=== PATIENT | male | born 1940 | race Caucasian/White ===

== ENCOUNTER 2022-11-12 08:07 | Day surgery (SDC) | payer MEDICARE, BC, SELFPAY ==
[2022-11-12 08:25] VITALS: BP 157/75; PULSE 98; RESP 20; TEMP 36.2; O2SAT 98
--- NOTE | 2022-11-12 08:44 | W.PREOPHP ---
Assessment and Plan Assessment and plan (1) Nuclear age-related cataract, right eye: Status: Acute Assessment and plan: Assessment: Visually significant cataract of the right eye. Plan: Cataract extraction of the left eye with intraocular lens implantation, followed by cataract surgery in the right eye with lens implantation. (2) Cortical age-related cataract, right eye: Status: Acute Assessment and plan: Assessment: Visually significant cataract of the right eye. Plan: Cataract extraction of the left eye with intraocular lens implantation, followed by cataract surgery in the right eye with lens implantation (3) Cortical age-related cataract, left eye: Status: Acute Assessment and plan: Assessment: Visually significant cataract of the left eye. Plan: Cataract extraction with lens implantation of the left eye. (4) Nuclear age-related cataract, left eye: Status: Acute Assessment and plan: Assessment: Visually significant cataract of the left eye. Plan: Cataract extraction with lens implantation of the left eye. History of Present Illness History of Present Illness Chief Complaint: Progressive decreased vision in both eyes Narrative: The patient is a 81-year-old gentleman who presented with complaints of progressive blurred vision in both eyes at both distance and near. He can no longer read due to increased blurred vision. On examination he was noted to have moderate bilateral nuclear and cortical cataract. The option of cataract surgery was offered to the patient and he felt he was symptomatic enough that he wished to proceed. Review of Systems All systems reviewed & are unremarkable except as noted in HPI and below PFSH All Active Problems Cortical age-related cataract, right eye (Acute) Nuclear age-related cataract, right eye (Acute) Cortical age-related cataract, left eye (Acute) Nuclear age-related cataract, left eye (Acute) Medical History Abnormal gait pt. 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 denies CKD (chronic kidney disease) pt. unsure Diverticular disease Gastritis Gout Hypertensive disorder Melanoma Non-healing skin lesion of nose Obesity PVD (peripheral vascular disease) Retinopathy due to secondary diabetes mellitus pt unsure Rosacea Seborrheic keratoses Spinal stenosis of lumbar region Type 2 diabetes mellitus Surgical History H/O aortic valve replacement 2018 History of colonoscopy History of melanoma excision Hx of cardiac catheterization S/P CABG x 2 2018 Social History Smoking/Tobacco Use Status: Former Tobacco Use Quit Date: 06/10/95 Tobacco: How many years used: 30 Smoking risk assessment performed?: Yes Alcohol Intake: current Alcohol Intake frequency: a few times a week Alcohol type: wine Drug use: Never Substance use type: does not use Do you feel safe at home: Yes Do you feel safe in your relationship?: Yes Additional Social history: per pt state his son will be with him next week Meds Allergies and Home Medications Allergies Allergy/AdvReac Type Severity Reaction Status Date / Time No Known Allergies Allergy Unverified 11/12/22 08:49 Home Medications Medication Instructions Recorded Confirmed Type aspirin 81 mg tablet 81 mg PO DAILY 11/09/22 11/12/22 History carvedilol 25 mg tablet 25 mg PO BID 11/09/22 11/12/22 History metformin 1,000 mg tablet 1,000 mg PO BID 11/09/22 11/12/22 History terazosin 5 mg capsule 5 mg PO QHS 11/09/22 11/12/22 History glipizide 5 mg tablet, extended 5 mg PO DAILY 11/12/22 11/12/22 History release 24 hr Exam Eyes Other: Most recent ophthalmic examination revealed corrected visual acuity of 20/30 in each eye. Extract motility is normal. Intraocular pressure was 16 OD, 19 OS. Slit-lamp exam reveals pupils dilating only to 4 mm OU. Moderate nuclear and cortical cataracts are present OU with moderate brunescent's. Dilated funduscopic examination reveals disc cupping of 0.35 OU with normal vessels, macula, peripheral retina and vitreous. Resp Auscultation: clear to auscultation bilaterally Cardio Rate: regular rate Rhythm: regular rhythm
[2022-11-12] MEDS: Tropicam./Phenyleph. (1/2.5%) 5 ML BTL OS ×3 (09:03→09:16)
--- NOTE | 2022-11-12 09:42 | W.ANESPRE ---
General Info Date of Service Date Performed: 11/12/22 Height: 5 ft 8 in Weight: 86.3 kg Body Mass Index (BMI): 28.9 Surgical Procedure: Operation Date: 11/12/22 09:55 Proposed Procedure Side Surgeon p Cataract Extraction with IOL Implant Left Roly Santos MD Meds Allergies and Home Medications Allergies Allergy/AdvReac Type Severity Reaction Status Date / Time No Known Allergies Allergy Unverified 11/12/22 08:49 Home Medication Medication Instructions Recorded aspirin 81 mg tablet 81 mg PO DAILY 11/09/22 carvedilol 25 mg tablet 25 mg PO BID 11/09/22 metformin 1,000 mg tablet 1,000 mg PO BID 11/09/22 terazosin 5 mg capsule 5 mg PO QHS 11/09/22 glipizide 5 mg tablet, extended 5 mg PO DAILY 11/12/22 release 24 hr Current Visit Medications: Current Medications Generic Name Dose Route Start Last Admin Trade Name Freq PRN Reason Stop Dose Admin Acetaminophen 1,000 mg 11/12/22 06:00 Acetaminophen 500 Mg Tab PO 12/12/22 05:59 Q4H PRN PRN Balanced Salt Solution 500 ml 11/12/22 06:00 Balanced Salt Soln.-Plus 500 Ml Bag OP 12/12/22 05:59 DIRECTED SONIA Miscellaneous Medication 0 ml 11/12/22 06:00 Prednisolone 1%, Moxifloxacin 0.5%, Nepafenac 0.1% 5ml Btl OS 12/12/22 05:59 DIRECTED SONIA Miscellaneous Medication 0 ml 11/12/22 06:00 11/12/22 09:16 Tropicam./Phenyleph. (1/2.5%) 5 Ml Btl OS 12/12/22 05:59 1 drp DIRECTED SONIA Administration Tetracaine HCl 0 ml 11/12/22 06:00 Tetracaine 0.5% 4 Ml Btl OS 12/12/22 05:59 DIRECTED SONIA PFSH Active Problems Active Problems: Problem Status Onset Code Cortical age-related cataract, right eye H25.011 Nuclear age-related cataract, right eye H25.11 Cortical age-related cataract, left eye H25.012 Nuclear age-related cataract, left eye H25.12 Medical History Medical History Abnormal gait pt. 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 denies CKD (chronic kidney disease) pt. unsure Diverticular disease Gastritis Gout Hypertensive disorder Melanoma Non-healing skin lesion of nose Obesity PVD (peripheral vascular disease) Retinopathy due to secondary diabetes mellitus pt unsure Rosacea Seborrheic keratoses Spinal stenosis of lumbar region Type 2 diabetes mellitus Surgical History Surgical History H/O aortic valve replacement 2018 History of colonoscopy History of melanoma excision Hx of cardiac catheterization S/P CABG x 2 2018 Tobacco Smoking/Tobacco Use Status: Former Tobacco Use Alcohol Alcohol Intake: current Alcohol intake frequency: a few times a week Alcohol type: wine Substance Use Substance use: Never Substance use type: does not use Vital Signs and Lab Results Vital Signs Most Recent Vital Signs in EMR: Most Recent Vital Signs Temp Pulse Resp BP Pulse Ox 36.2 C L 98 H 20 157/75 H 98 11/12/22 08:25 11/12/22 08:25 11/12/22 08:25 11/12/22 08:25 11/12/22 08:25 Point of Care Results Point of Care Results: Finger Stick Blood Glucose 127 11/12/22 09:22 Lab Results Blood Type / Crossmatch: No Data to Display Complete Blood Count: No Data to Display Complete Metabolic Panel: No Data to Display Liver Function Panel: No Data to Display Coagulation Panel: No Data to Display Cardiac Panel: No Data to Display Arterial Blood Gas: No Data to Display Venous Blood Gas: No Data to Display Pancreas Panel: No Data to Display Thyroid Panel: No Data to Display Infectious Disease: No Data to Display Blood Cultures: No Data to Display Toxicology Panel: No Data to Display Anesthesia Assessment and Plan Anesthesia History Personal History: No History of Anesthesia Complications Family History: No Family History of Anesthesia Complications Exercise Tolerance Exercise Tolerance: Metabolic Equivalents>4 Pertinent Negatives Pertinent Negatives: No Symptoms of GERD Cardiac & Pulmonary Exam Cardiac Exam: Normal S1/S2 Heart Sounds Pulmonary Exam: Clear Bilateral Breath Sounds Implantable Cardiac Device Does patient have a Pacemaker or an ICD?: No Airway Exam Known Difficult Airway: No Mallampati Class: 2 Mouth Opening: Normal (> 3cm) Thyromental Distance: Greater than 3 cm Neck Range of Motion: Full ROM Neck Circumference: Normal Teeth Condition: Normal Dentition ASA Classification ASA Score: ASA 3 Emergency Case?: No NPO Status NPO Status: NPO Clears >2 hours, Solids >8 hours Anesthesia Plan Resuscitation Status: Full Code Anesthesia Technique: MAC Anesthesia Airway Planned: Natural Airway Pain Management: Surgeon and patient request nerve block Monitors Used: Standard Monitors
[2022-11-12 09:43] VITALS: BMI 28.9
[2022-11-12] MEDS: Balanced Salt Soln.-PLUS 500 ML BAG OP ×2 (10:06→10:28)
[2022-11-12] MEDS: Duovisc Viscoelastic System EACH 1 EACH ×2 (10:07→10:33)
[2022-11-12] MEDS: Tetracaine 0.5% 4 ML BTL OS (10:07)
[2022-11-12] MEDS: Lidocaine 1% Pres-Free 5 ML VIAL (10:08)
[2022-11-12] MEDS: Povidone-Iodine Ophth 30 ML BTL (10:09)
[2022-11-12] MEDS: Phenylephrine/Lidocaine (15/10) MG/ML 1 ML VIAL (10:09)
--- NOTE | 2022-11-12 10:53 | W.PM.DSUDISC ---
Date of service: 11/12/22 Time of Service: 10:53 Discharge Plan Disposition Patient Disposition: Home Discharge Details Attending Provider: Roly Santos Primary Care Provider: Hung Serrano Home Meds and New Rx's Prescriptions: No Action terazosin 5 mg Capsule 5 mg PO QHS carvedilol 25 mg Tablet 25 mg PO BID Rx Instructions: must administer with a meal/food metformin 1,000 mg Tablet 1,000 mg PO BID aspirin 81 mg Tablet 81 mg PO DAILY glipizide 5 mg Tablet Extended Release 24hr 5 mg PO DAILY Discharge Instructions Stand Alone Forms: Post-op Topical Cataract, Ananya Epstein (DSU) Discharge Orders Discharge Orders: Discharge Order (Routine); Ordered 11/12/22 Ordered By: Roly Santos DS: Diagnosis Discharge Diagnosis (1) Cortical age-related cataract, left eye: Status: Resolved (2) Nuclear age-related cataract, left eye: Status: Resolved
--- NOTE | 2022-11-12 10:54 | ROE_ITS ---
Date of service: 11/12/22 Time of Service: 10:54 Operative Note Operative Note DATE OF PROCEDURE: 11/12/22 PRE-OP DIAGNOSIS: Dense nuclear/cortical cataract, left eye Poorly dilating pupil, left eye POST-OP DIAGNOSIS: same PROCEDURE: Cataract extraction by phacoemulsification with intraocular lens implantation, left eye, with pupillary expansion device SURGEON: Roly Santos ANESTHESIA TYPE: Local By Surgeon and MAC Refer to Anesthesia Record ESTIMATED BLOOD LOSS: 0 PATHOLOGY: none sent COMPLICATIONS: None Patient was transported to: same day Patient's condition: stable Implants: Leland [employer] / [employer] Tecnis Eyhance [id number] Indications: Progressive decreased vision, left eye Poorly dilating pupil, left eye. Procedure Description: CATARACT SURGERY OPERATIVE REPORT PREOPERATIVE DIAGNOSIS: 1. Dense nuclear/cortical cataract, left eye 2. Poorly dilating pupil, left eye POSTOPERATIVE DIAGNOSIS: Same OPERATION: 1. Cataract extraction using phacoemulsification with posterior chamber intraocular lens implant, left eye. 2. Pupillary dilation and iris stabilization using Malyugin Ring IOL; IOL Agency Development Manager/Model: Lang Clareon [id number] IOL Power: + 19.5 diopters IOL Serial Number: [id number] Optic Diameter: 6.0 mm Haptic/Overall Diameter: 13.00 mm PHACO INFO: Lang [employer]ion Vision System with OZil and Active [employer]uidics Cumulative Dispersed Energy (CDE): 33.88 seconds SURGEON: Roly Santos MD, SHELBY ANESTHESIA: Monitored Anesthesia Care (MAC), with local sub-tenon's anesthetic infiltration COMPLICATIONS: None SPECIMENS: None INDICATIONS FOR PROCEDURE: The patient is an 82-year-old male with history of diminished visual acuity in both eyes secondary to the development of bilateral nuclear/cortical cataract. He is significantly symptomatic that he desires cataract surgery and attempt to improve and maximize his vision. The option of cataract surgery was offered to the patient and he wished to proceed. See office notes for detailed information. PROCEDURE: The correct surgical eye was identified and marked as the left eye and the pupil was dilated in the preoperative area using mydriatics, cycloplegics, and NSAIDS (except in aspirin allergic patients). The dilated pupil size was 4.0 mm. The patient elected to proceed without oral sedation. The patient was brought to the operating room where cardiopulmonary monitoring was instituted and surgical time-out was performed, confirming the correct operative eye and IOL power. Topical anesthesia was administered and ophthalmic povidone-iodine 5% was instilled into the conjunctival fornices. Lidocaine gel was applied to the cornea and the carie-ocular area was prepped with Betadine 10% solution and draped in the usual sterile fashion for intraocular surgery, including an aperture drape. A Tegaderm transparent film dressing was cut in half and used to cover the lashes and lid margins. Care was taken to sequester the lashes and lid margins under the Tegaderm dressing. A lid speculum was placed between the lids of the operative eye and the Stefan-Patricia operating microscope was maneuvered into position. Jhon scissors were then used to make a conjunctival buttonhole approximately 6mm posterior to the limbus in the inferonasal quadrant. Blunt dissection was carried out to expose bare sclera, and a blunt-tipped sub-tenon?s anesthesia cannula was introduced and passed posteriorly along the globe where non- preserved plain lidocaine was injected into posterior sub-Tenon?s space. A sideport knife was used to make a paracentesis port superiorly/superiortemporally. Intraocular phenylephrine/lidocaine was injected into the anterior chamber. The anterior chamber was then filled with viscoelastic. A keratome knife was used to create a half-thickness groove at the limbus and then to construct a three-plane near-clear corneal tunnel extending 2.0mm into clear cornea at the temporal position. A 7.0 mm Malyugin Ring was then inserted into the pupillary space and engaged with the Kuglen hook. A flap was raised on the anterior capsule and capsulorhexis forceps were used to complete a continuous curvilinear capsulorhexis of 5.0 mm. The capsule was noted to be quite thin with mild to moderate generalized zonular laxity. Balanced salt solution was then used to perform cortical cleaving hydrodissection and nuclear hydrodelineation until the lens could be freely ro tated within the capsular bag. The lens nucleus was then disassembled and removed within the capsular bag and iris plane using phacoemulsification. The nucleus was noted to be quite dense. A Stop & Shop technique was used, with additional dispersive viscoelastic injected intermittently to protect the corneal endothelium. Residual cortical material was removed using the 45-degree angled silicone I/A tip with 0.3mm port. The posterior capsule was carefully polished to remove as much residual lens epithelial cells as safely possible. The capsular bag was then inflated and the anterior chamber deepened with viscoelastic. The lens implant described above was inserted into the capsular bag using the [employer]eland [employer]eland Simplicity Injector. A Kuglen hook was used to dial the IOL into position. The Malyugin Ring was removed in the reverse order of its insertion. Residual viscoelastic was then removed first from posterior to the IOL, then from the anterior chamber using the I/A handpiece. The lens implant was noted to center nicely within the capsular bag. The incisions were stromally hydrated, and the anterior chamber was reformed using BSS. Then 0.5cc of moxifloxacin 1.0mg/ml were injected into the capsular bag and anterior chamber. The incisions were checked with a Weck spear and found to be secure. Several drops of ophthalmic povidone-iodine 5% were then applied to the eye followed by two drops of Imprimis combination prednisolone/moxifloxacin/nepafenac solution. The drapes were removed and a clear plastic protective eye shield was placed over the eye. The patient was then returned to Same Day Surgery in stable condition.
--- NOTE | 2022-11-12 10:56 | W.ANESPOSTOP ---
Postoperative Evaluation Date, Time and Location Date Performed: 11/12/22 Time Performed: 10:56 Patient Location: Day Surgery Unit Vital Signs Most Recent Imported Vital Signs: Most Recent Vital Signs Temp Pulse Resp BP Pulse Ox 36.2 C L 98 H 20 157/75 H 98 11/12/22 08:25 11/12/22 08:25 11/12/22 08:25 11/12/22 08:25 11/12/22 08:25 Pain Score Most Recent Pain Score: Most Recent Pain Score Pain Level 0 11/12/22 08:25 Assessment Mental Status: Awake (Alert & Oriented to Patient Baseline) Airway and Respiratory Function: Patent airway with normal (patient baseline) respiratory exam Cardiovascular Function: Hemodynamically Stable Hydration Status: Adequately Hydrated Nausea & Vomiting: No Nausea or Vomiting Pain: Pt. Denies Any Pain Peripheral Nerve Block: Patient did not receive a nerve block
[2022-11-12 10:57] VITALS: BP 145/84; PULSE 95; RESP 22; TEMP 36.2; O2SAT 94
== END 2022-11-12 11:26 | disposition home or self-care (01) ==
PROVIDERS: PCP Family Medicine; Visit Provider Ophthalmology
PROC: (CPT 66982; principal; 2022-11-12 09:45)
DX: H25.11 Age-related nuclear cataract, right eye (principal); H25.011 Cortical age-related cataract, right eye; H25.012 Cortical age-related cataract, left eye; I10 Essential (primary) hypertension
CPT/HCPCS: 66982; V2632